=== PATIENT | male | born 1990 | race Caucasian/White ===

== ENCOUNTER 2018-11-17 13:05 | Emergency (ER) | payer OTHER ==
--- NOTE | 2018-11-17 13:56 | Diagnostic Imaging Report ---
Head CT without intravenous contrast Indication: Trauma Comparison: None Technique: Axial images were obtained from the vertex to the skull base without IV contrast. Coronal reconstructions were made. Total DLP: 791, CTDI42.4 FINDINGS: Images of the brain obtained without contrast demonstrate no acute hemorrhage. No mass lesions identified. The ventricles and basal cisterns are patent. The olson-white matter differentiation is preserved. There is no mass effect or midline shift. No skull fractures identified. No soft tissue swelling. Leftward deviated nasal septum is noted. The paranasal sinuses are clear. IMPRESSION: No acute intracranial abnormality. Left foot deviated nasal septum.
--- NOTE | 2018-11-17 13:58 | Diagnostic Imaging Report ---
CT cervical spine without IV contrast HISTORY: Trauma COMPARISON: None Technique: Axial images were obtained from the skull base to the upper thoracic spine without IV contrast. Multiplanar reconstructions were made. Total DLP: 696, CTDI31.7 FINDINGS: Images of the spine cervical spine obtained without contrast demonstrate no evidence of a fracture or subluxation. The disc spaces are preserved. Minimal degenerative changes are noted. No prevertebral soft tissue swelling. No focal soft tissue abnormalities. The lung apices are clear. IMPRESSION: No evidence of a fracture or subluxation.
--- NOTE | 2018-11-17 15:01 | ED Physician Chart ---
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 Allergies:: Allergies Allergy/AdvReac Type Severity Reaction Status Date / Time Penicillins [PCN] Allergy Verified 11/17/18 13:12 Vitals:: Vital Signs - 8 hr 11/17/18 11/17/18 13:14 14:00 Temp 97.5 F 98.1 F HR 71 64 RR 16 15 BP 120/62 121/68 O2 Sat % 96 Historian:: Patient, Friend Review:: Nurse's Note Reviewed, Old Chart Reviewed ED Review of Systems - Review of Systems General/Constitutional: No fever, No chills, No weight loss, No weakness, No diaphoresis, No edema, No loss of appetite Skin: No skin lesions, No rash, No bruising Head: No headache, No light-headedness Eyes: No loss of vision, No pain, No diplopia ENT: No earache, No nasal drainage, No sore throat, No tinnitus Neck: No neck pain, No swelling, No thyromegaly, No stiffness, No mass noted Cardio Vascular: No chest pain, No palpitations, No PND, No orthopnea, No edema Pulmonary: No SOB, No cough, No sputum, No wheezing GI: No nausea, No vomiting, No diarrhea, No pain, No melena, No hematochezia, No constipation, No hematemesis G/U: No dysuria, No frequency, No hematuria, No nacturia Musculoskeletal: No bone or joint pain, No back pain, No muscle pain Endocrine: No polyuria, No polydipsia Psychiatric: No prior psych history, No depression, No anxiety, No suicidal ideation, No homicidal ideation, No auditory hallucination, No visual hallucination Hematopoietic: No bruising, No lymphadenopathy Allergic/Immuno: No urticaria, No angioedema Neurological: No syncope, No focal symptoms, No weakness, No paresthesia, No headache, No seizure, No dizziness, No confusion, No vertigo ED Past Medical History - Past Medical History Obtainable: Yes Past Medical History: No significant medical hx Family History: None Social History: Non Smoker, No Alcohol, No Drug Use, Single, Employed Surgical History: None Psychiatricy History: None Medication: Reviewed Family Medical History - Family Member Mother History Unknown: Yes Living Status: Still Living ED Physical Exam - Physical Examination General/Constitutional: Awake, Well-developed, well-nourished, Alert, No distress, GCS 15, Non-toxic appearing, Ambulatory Other Head comments:: + Middle Parietal Scalp Contusion; no wounds; no cellulitis; no FBs; no septic joints; good motor and sensory functions; good NV functions Eyes: Lids, conjuctiva normal, PERRL, EOMI Other Eyes comments:: PERRLA; Fundi: benign; EOMs: WNL Skin: Nl inspection, No rash, No skin lesions, No ecchymosis, Well hydrated, No lymphadenopathy ENMT: External ears, nose nl, TM canals nl, Nasal exam nl, Lips, teeth, gums nl , Oropharynx nl, Tonsils nl Other ENMT comments:: TMJs: WNL Neck: Nontender, Full ROM w/o pain, No JVD, No nuchal rigidity, No bruit, No mass, No stridor Other Neck comments:: supple; no meningeal signs; no cervical tenderness; no bruits Respiratory: Nl effort/Exclusion, Clear to Auscultation, No Wheeze/Rhonchi/Rales Cardio Vascular: RRR, No murmur, gallop, rubs, NL S1 S2, Carotid/Femoral/Distal pulses equal bilaterally GI: No tenderness/rebounding/guarding, No organomegaly, No hernia, Normal BS's, Nondistended, No mass/bruits, No McBurney tenderness, Rectum exam nl Other GI comments:: no pulsatile masses : No CVA tenderness Extremities: No tenderness or effusion, Full ROM, normal strength in all extremities, No edema, Normal digits & nails Neuro/Psych: Alert/oriented, DTR's symmetric, Normal sensory exam, Normal motor strength, Judgement/insight normal, Mood normal, Normal gait, No focal deficits Other Neuro/Psych comments:: no focal signs Misc: Normal back, No paraspinal tenderness ED Labs/Radiology/EKG Results - Radiology Results Comments:: NAD ED Septic Shock - . Is Septic Shock (SBP<90, OR Lactate>4 mmol\L) present?: No - <6hrs of presentation: Vital Signs: Vital Signs - 8 hr 11/17/18 11/17/18 13:14 14:00 Temp 97.5 F 98.1 F HR 71 64 RR 16 15 BP 120/62 121/68 O2 Sat % 96 ED Reassessment (Disposition) - Reassessment Reassessment:: pt tolerated po fluids well in ER; pt is asymptomatic upon discharge Reassessment Condition:: Improved - Diagnosis Diagnosis:: Scalp Contusion; Accidental Fall; Head Injury; Head Trauma - Aftercare/Follow up Instructions Aftercare/Follow-Up Instructions:: Counseled pt regarding lab results/diagnosis & need follow up, Refer to Discharge Instructions, Counseled pt & family regarding lab results/diagnosis & need follow up Notes:: X-Rays Instructions - Patient Disposition Discharge/Transfer:: Home Condition at Disposition:: Stable, Improved (RTER prn if existing s/s reoccur and/or get worse and/or any other new s/s occur; ACIs given for all above Dx; Refer to Trauma Specialist/Neurologist/Basket Weaver JENNY; F/U with PMD in one day or prn; RTER prn if concerned)
== END 2018-11-17 14:30 | disposition home or self-care (01) ==
LOC: EDBD → ER 13:05
DX: S00.03XA Contusion of scalp, initial encounter (principal); Z88.0 Allergy status to penicillin; W18.39XA Other fall on same level, initial encounter; Y93.89 Activity, other specified; Y92.89 Other specified places as the place of occurrence of the external cause; Y99.8 Other external cause status
CPT/HCPCS: 70450-TC; 72125-TC; A4217

== ENCOUNTER 2018-11-18 19:26 | Emergency (ER) | payer OTHER ==
--- NOTE | 2018-11-18 20:12 | ED Physician Chart ---
ED Chief Complaint/HPI - Patient Information Date Seen:: 11/18/18 Time Seen:: 20:00 Chief Complaint:: chest wall and back pain History of Present Illness:: Yesterday patient fell about 5 feet off a ladder landing on his right him antibiotics and then striking the back of his head. He was confused for 3-4 hours afterwards but is better now. Patient referred here yesterday after the injury and a CAT scan of these head and cervical spine were done which were both normal. Patient complains of pain of the inferior chest extending as a horizontal band around his torso. Patient denies hematuria. Allergies:: Allergies Allergy/AdvReac Type Severity Reaction Status Date / Time Penicillins [PCN] Allergy Verified 11/18/18 19:52 Vitals:: Vital Signs - 8 hr 11/18/18 19:35 Temp 98.4 F HR 66 RR 18 BP 141/81 O2 Sat % 98 Historian:: Patient Review:: Nurse's Note Reviewed ED Review of Systems - Review of Systems General/Constitutional: No fever, No chills, No weight loss, No weakness, No diaphoresis, No edema, No loss of appetite Skin: No skin lesions, No rash, No bruising Head: No headache, No light-headedness Eyes: No loss of vision, No pain, No diplopia ENT: No earache, No nasal drainage, No sore throat, No tinnitus Neck: No thyromegaly, Stiffness Cardio Vascular: Chest pain Pulmonary: No SOB GI: No nausea, No vomiting, No diarrhea, No pain, No melena, No hematochezia, No constipation, No hematemesis Musculoskeletal: Bone or joint pain Endocrine: No polyuria Psychiatric: No prior psych history Hematopoietic: No bruising Allergic/Immuno: No urticaria Neurological: No syncope ED Past Medical History - Past Medical History Past Medical History: No significant medical hx Family History: Diabetes Melitus Social History: Non Smoker, Other (social alcohol consumption) Surgical History: None Psychiatricy History: None Medication: None Family Medical History - Family Member Mother History Unknown: Yes Living Status: Still Living ED Physical Exam - Physical Examination General/Constitutional: Well-developed, well-nourished, Alert, No distress Other Head comments:: Right superior occipital tenderness Eyes: Lids, conjuctiva normal, PERRL Skin: Nl inspection, No rash ENMT: External ears, nose nl, TM canals nl, Nasal exam nl, Lips, teeth, gums nl , Oropharynx nl, Tonsils nl Other Neck comments:: Range of motion of the neck: 90 forward flexion; 80 extension; 40 rotation; 10 degrees lateral flexion Respiratory: Nl effort/Exclusion, Clear to Auscultation Cardio Vascular: RRR, No murmur, gallop, rubs GI: No tenderness/rebounding/guarding, No organomegaly, No hernia, Normal BS's, Nondistended, No mass/bruits, No McBurney tenderness Extremities: No tenderness or effusion Neuro/Psych: No focal deficits Other Misc comments:: Right flank tenderness ED Labs/Radiology/EKG Results - Radiology Results Results: Chest x-ray negative ED Assessment - Assessment General Assessment: Patient denies headache and pleasant but [place] patient to take Tylenol for any headache he may develop ED Septic Shock - . Is Septic Shock (SBP<90, OR Lactate>4 mmol\L) present?: No - <6hrs of presentation: Vital Signs: Vital Signs - 8 hr 11/18/18 19:35 Temp 98.4 F HR 66 RR 18 BP 141/81 O2 Sat % 98 ED Reassessment (Disposition) - Reassessment Reassessment Condition:: Unchanged - Diagnosis Diagnosis:: Blunt head trauma; postconcussion syndrome; cervical strain; chest wall strain - Patient Disposition Discharge/Transfer:: Home Condition at Disposition:: Stable, Unchanged
--- NOTE | 2018-11-19 08:37 | Diagnostic Imaging Report ---
Portable chest x-ray Time: 2015 History: Trauma Allowing for portable technique the heart size is normal. No focal pulmonary parenchymal processes. No hilar or mediastinal abnormalities. Impression: No acute abnormalities.
== END 2018-11-18 20:34 | disposition home or self-care (01) ==
LOC: ER 19:26
DX: S16.1XXA Strain of muscle, fascia and tendon at neck level, initial encounter (principal); S09.90XA Unspecified injury of head, initial encounter; S29.011A Strain of muscle and tendon of front wall of thorax, initial encounter; F07.81 Postconcussional syndrome; Z88.0 Allergy status to penicillin; W11.XXXA Fall on and from ladder, initial encounter; Y93.89 Activity, other specified; Y92.89 Other specified places as the place of occurrence of the external cause; Y99.8 Other external cause status
CPT/HCPCS: 71045-TC; Z7502